=== PATIENT | male | born 1965 | race Caucasian/White ===

== ENCOUNTER → 2024-04-11 08:08 | Outpatient (REF) | payer BC, SELFPAY | LOC: RAD 08:08 | PROVIDERS: ATTENDING PHYSICIAN Surgery; FAMILY PHYSICIAN Family Medicine | DX: K40.90 Unilateral inguinal hernia, without obstruction or gangrene, not specified as recurrent (principal) | CPT/HCPCS: 74177; Q9967 ==

== ENCOUNTER 2024-05-16 06:48 | Day surgery (SDC) | payer BC, SELFPAY ==
[2024-05-16] VITALS (10 sets, daily range): BP systolic 132–147; BP diastolic 88–104; BMI 27.6
[2024-05-16] MEDS: NORMOSOL-R/PLASMALYTE-A 1000 IV (07:49)
[2024-05-16] MEDS: TYLENOL 1000 MG PO (07:49)
--- NOTE | 2024-05-16 11:53 | OR.RPT ---
Operative Report
Operative Report
Primary Surgeon: Finn
Assisting: Justine DILLON
Pre-op Diagnosis: Bilateral inguinal hernia
Post-op Diagnosis: Same
Procedure Performed: Robot assisted laparoscopic repair fo bilateral inguinal hernias
Anesthesia Type: GETA
Specimen / Cultures: None
Estimated Blood Loss: 10cc
Complications: None immediate
Operative Findings: Right indirect defect with large deep sac totally reduced; left large cord lipoma, no sac; B/L XL MID 3D Max
Date of surgery: 05/16/24
Indications:� This 58M developed symptomatic right inguinal hernia. On imaging a contralateral inguinal hernia was identified. He asked that we fix both sides today. Robot assisted laparoscopic repair was planned.
Description of procedure:� The patient was taken to the operating room and positioned into supine position. The patient�s abdomen was prepped and draped in standard sterile fashion. A time-out was completed verifying correct patient, procedure,
site, positioning, and implants and special equipment prior to beginning this procedure.
The groin hernias were manually reduced. A stab incision was made in the left upper quadrant, a Veress needle was inserted and proper position was confirmed by aspiration and saline drop test. Following this, pneumoperitoneum was created with
insufflation of carbon dioxide to 12 mmHg. Then a 8mm robotic trocar was inserted above and to the left of the umbilicus. A laparoscope was inserted and the area of initial trocar entry and Veress needle placement were both inspected and no injuries
were found. Two 8mm trocars were then placed lateral to the rectus sheath under direct visualization.
Both inguinal regions were inspected and the median umbilical ligament, medial umbilical ligament, and lateral umbilical fold were identified. Attention was turned to the right groin. The peritoneum was incised transversely above the defect and a
flap was developed in the caudad direction. Sundar�s ligament was identified ultimately dissected to its junction with the iliac vein and the space of Retzius was developed bluntly.�The dissection was continued inferiorly to the iliopubic tract,
with care taken to avoid injury to the femoral branch of the genitofemoral nerve and the lateral femoral cutaneous nerve. The cord structures were parietalized.
The direct space was inspected and no hernia defect was identified. The femoral space was inspected no defect was identified.� The indirect space was inspected and a hernia was identified and reduced by gentle traction. The canal was inspected and
no cord lipoma was identified. The sac was large and deep and totally reduced.
Attention was turned to the left groin and the above process was repeated. An large cord lipoma was reduced from the canal. No other hernias were identified.
Extra large left and right MID 3D max mesh was passed through a trocar. The mesh was placed into the preperitoneal space and moved into position to lay flat and completely cover the direct, indirect, and femoral spaces with overlap at the midline.
The mesh was secured into place using 2-0 vicryl suture to Sundar�s ligament medially and laterally. Care was taken to avoid the inferolateral triangles containing the iliac vessels and genital nerves. The peritoneal flap was closed over the mesh
and secured with 2-0 monocryl stratafix suture in similar positions of safety. A 14g angiocath was used to decompress the preperitoneal space revealing good seal and all mesh in good position without folding or curling.
After ensuring adequate hemostasis, the trocars were removed and the pneumoperitoneum allowed to escape. The trocar incisions were closed at the skin level using 4-0 monocryl and topical skin adhesive. All counts were correct and the patient
tolerated the procedure well and was taken to the postanesthesia care unit in stable condition.
The assistance of Justine DILLON was required due to the complexity of the procedure. During the procedure she assisted with retraction, and closure of the wound.
[2024-05-16] MEDS: DILAUDID 0.25 MG IV (12:50)
--- NOTE | 2024-05-16 12:57 | SUR.PHASEI ---
Medicated or elevated b/p, states took b/p med this am but doesn't know name, denies feeling need to urinate, zach med well, ice chips given
--- NOTE | 2024-05-16 13:01 | SUR.PHASEI ---
Lightly dozing on stretcher, b/p down
--- NOTE | 2024-05-16 13:18 | SUR.PHASEI ---
Arouses easliy, vss, zach ice chips well SDS texted for d/c
== END 2024-05-16 14:47 | disposition home or self-care (01) ==
LOC: SDS 06:48
PROVIDERS: ATTENDING PHYSICIAN Surgery
PROC: 8E0W4CZ Robotic Assisted Procedure of Trunk Region, Percutaneous Endoscopic Approach (ICD-10-PCS; 2024-05-16)
PROC: 0YUA4JZ Supplement Bilateral Inguinal Region with Synthetic Substitute, Percutaneous Endoscopic Approach (ICD-10-PCS; 2024-05-16)
DX: K40.20 Bilateral inguinal hernia, without obstruction or gangrene, not specified as recurrent (principal)
CPT/HCPCS: 49650; C1781